=== PATIENT | female | born 1985 | race Caucasian/White ===

== ENCOUNTER 2021-08-12 22:31 | Emergency (ER) | payer BC | END 2021-08-12 23:15 | disposition home or self-care (01) | LOC: CC.ED 22:31 | DX: S61.211A Laceration without foreign body of left index finger without damage to nail, initial encounter (principal); Z91.048 Other nonmedicinal substance allergy status; W26.0XXA Contact with knife, initial encounter | CPT/HCPCS: 12001; 99282-25 ==